=== PATIENT | female | born 1990 | race Two or more races ===

== ENCOUNTER 2023-12-24 09:36 | Emergency (ER) | payer MEDICAID, OTHER ==
[~2023-12-24] VITALS: Ht 157.5 cm; Wt 94.6 kg
[2023-12-24 12:35] VITALS: BP 141/75; PULSE 63; RESP 15; TEMP 97.9; O2SAT 97
[2023-12-24 12:45] LABS: Urine Bacteria None Seen /hpf (None Seen)
[2023-12-24 13:16] LABS: Urine Blood Negative /uL (Negative); Urine Clarity Clear (Clear); Urine Color Yellow (Yellow); Urine Mucus FEW (None Seen); Urine Protein, UAD TRACE (Negative); Urine Specific Gravity 1.031 (1.001-1.035); Urine Urobilinogen Normal (Negative); Urine WBC 2 /hpf (0 - 5); Urine pH 5.5 (5.0-9.0)
[2023-12-24 13:23] LABS: Eosinophils # (auto) 0.4 10 ^3/uL (0-0.8); Mean Corpuscular Hgb Conc. 32.9 g/dL (32.0-36.0); Monocytes # (auto) 0.6 10 ^3/uL (0-1.3); Nucleated Red Blood Cells % 0.1 %; Red Blood Cells 4.76 10^6/uL (4.0-5.20)
[2023-12-24 13:25] LABS: Basophils # (auto) 0.1 10 ^3/uL (0-0.2); Basophils % (auto) 0.5 % (0.0-2.0); Eosinophils % (auto) 4.1 % (0.0-7.0); Hematocrit 38.3 % (36.0-46.0); Hemoglobin 12.6 g/dL (12.2-16.2); Lymphocytes # (auto) 3.6 10 ^3/uL (0.4-5.4); Lymphocytes % (auto) 34.1 % (10.0-50.0); Mean Corpuscular Hemoglobin 26.5 pg (28.0-32.0); Mean Corpuscular Volume 80.6 fL (80.0-100.0); Monocytes % (auto) 5.9 % (0.0-12.0); Neutrophils # (auto) 5.9 10 ^3/uL (1.6-8.6); Neutrophils % (auto) 55.4 % (37.0-80.0); Red Cell Distribution Width 15.3 % (11.8-14.3); White Blood Cell 10.7 10^3/uL (4.4-10.8)
[2023-12-24 13:32] LABS: Chloride 107 mmol/L (98-107); Potassium 3.9 mmol/L (3.5-5.1); Sodium 139 mmol/L (136-145)
[2023-12-24 13:33] LABS: Anion Gap 4 (5-15); Calcium 9.5 mg/dL (8.5-10.1); Carbon Dioxide 28 mmol/L (20-30)
[2023-12-24 13:38] LABS: Blood Urea Nitrogen 12 mg/dL (9-23); Glucose 88 mg/dL (74-106)
[2023-12-24] MEDS ORDERED: NAPR-957 PO (14:18)
[2023-12-25 17:06] LABS: Chlamydia Trachomatis, NAA Negative (Negative); Neisseria gonorrhoeae, NAA Negative (Negative)
== END 2023-12-24 14:32 | disposition home or self-care (01) ==
LOC: EDBD 09:36 → ER 09:36
DX: R10.2 Pelvic and perineal pain (principal)
CPT/HCPCS: 36415; 76856; 80048; 81001; 81025; 85025

== ENCOUNTER 2024-02-21 07:54 | Emergency (ER) | payer MEDICAID ==
[~2024-02-21] VITALS: Ht 160 cm; Wt 94.3 kg
[~2024-02-21 07:54] MED LIST: NAPR-957 PO
[2024-02-21 08:37] LABS: Basophils # (auto) 0 10 ^3/uL (0-0.2); Basophils % (auto) 0.4 % (0.0-2.0); Eosinophils # (auto) 0.4 10 ^3/uL (0-0.8); Hemoglobin 13.4 g/dL (12.2-16.2); Lymphocytes # (auto) 1.1 10 ^3/uL (0.4-5.4); Lymphocytes % (auto) 12.6 % (10.0-50.0); Mean Corpuscular Hemoglobin 27.4 pg (28.0-32.0); Mean Corpuscular Hgb Conc. 33.5 g/dL (32.0-36.0); Mean Corpuscular Volume 81.7 fL (80.0-100.0); Monocytes # (auto) 0.5 10 ^3/uL (0-1.3); Monocytes % (auto) 5.5 % (0.0-12.0); Neutrophils # (auto) 6.9 10 ^3/uL (1.6-8.6); Neutrophils % (auto) 77.5 % (37.0-80.0); Nucleated Red Blood Cells % 0.2 %; White Blood Cell 8.9 10^3/uL (4.4-10.8)
[2024-02-21 09:06] LABS: Chloride 105 mmol/L (98-107); Potassium 3.8 mmol/L (3.5-5.1); Sodium 138 mmol/L (136-145)
[2024-02-21 09:07] LABS: Anion Gap 5 (5-15); Carbon Dioxide 28 mmol/L (20-30)
[2024-02-21 09:08] LABS: Calcium 9.6 mg/dL (8.5-10.1)
[2024-02-21 09:12] LABS: BUN/Creatinine Ratio 9.4 (10.0-20.0); Blood Urea Nitrogen 8 mg/dL (9-23); Glucose 98 mg/dL (74-106)
[2024-02-21] MEDS: SODIUM CHLORIDE 0.9% 1,000 ML IVB ONE (11:30)
[2024-02-21 11:53] LABS: Urine Bacteria FEW /hpf (None Seen); Urine Blood 3+ /uL (Negative); Urine Clarity Turbid (Clear); Urine Color Red (Yellow); Urine Mucus FEW (None Seen); Urine Protein, UAD 2+ (Negative); Urine Specific Gravity 1.011 (1.001-1.035); Urine Urobilinogen Normal (Negative); Urine WBC 30 /hpf (0 - 5); Urine pH 6.5 (5.0-9.0)
[2024-02-21] MEDS ORDERED: CIPR-173 PO (15:10)
[2024-02-21] MEDS ORDERED: HYDR-4902 PO (15:10)
[2024-02-21 15:32] VITALS: BP 128/60; PULSE 90; RESP 18; TEMP 98.9; O2SAT 98
== END 2024-02-21 15:33 | disposition home or self-care (01) ==
LOC: ER 07:54
DX: R10.2 Pelvic and perineal pain (principal); N70.11 Chronic salpingitis; N39.0 Urinary tract infection, site not specified
CPT/HCPCS: 36415; 74176; 76830; 76856; 80048; 81001; 84702; 85025; 96360; 99284; J7030

== ENCOUNTER 2025-06-11 16:23 | Observation (INO) | payer MEDICAID ==
[~2025-06-11 16:23] MED LIST changes: +CIPR-173 PO; +HYDR-4902 PO
[2025-06-11] MEDS ORDERED: PREN-96 PO (17:10)
--- NOTE | 2025-06-12 16:00 | DVHDS2 ---
Physician Discharge Progress N Final Diagnosis: decreased movement 34 WKS Operations or Procedures: Operations or Procedures NST REACTIVE REVIWED ,SONO Condition on Discharge: Good Disposition: Home Discharge Instructions: Diet: Regular Activity: No Restrictions, As Tolerated Follow Up/Referral: F/U with provider Medications: NA Follow Up Care: Specialist: 3D Discharge Statement: "Patient was advised to return to the ER or call 911 if any headaches, dizziness, shortness of breath, chest pain, abdominal pain, bleeding, fevers, or worsening of medical condition. Patient was counseled about treatment plan, medications, possible side effects, patientverbalized understanding. All questions were answered to the best of my ability. This discharge took greater then 30 minutes in planning, reviewing documentation, counseling the patient, and discussing with other team members." Visit Coding OBGYN Date of Service: Jun 11, 2025 Billing Provider: JOSELO VAZQUEZ DO FIXED ROUTE OPERATOR Common Visit Codes: 08942-[id number] OBS CARE (HIGH) FIXED ROUTE OPERATOR Procedure Codes: 85868-71- NON-STRESS TEST JOSELO VAZQUEZ DO Jun 12, 2025 16:00
== END 2025-06-11 17:20 | disposition home or self-care (01) ==
LOC: LDRP 16:23
PROVIDERS: ADMIT Obstetrics & Gynecology; ATTEND Obstetrics & Gynecology
DX: O36.8130 Decreased fetal movements, third trimester, not applicable or unspecified (principal); Z3A.34 34 weeks gestation of pregnancy; Z98.890 Other specified postprocedural states
CPT/HCPCS: 59025; 81002; 94760; G0378

== ENCOUNTER 2025-07-05 17:03 | Observation (INO) | payer MEDICAID ==
[~2025-07-05] VITALS: Ht 157.5 cm; Wt 100.7 kg
[~2025-07-05 17:03] MED LIST changes: +PREN-96 PO
[2025-07-05] MEDS: TERBUTALINE SULFATE 1 MG/ML 1ML VIAL SC ONE (18:33)
--- NOTE | 2025-07-05 19:01 | DVH ---
LIMITED OB ULTRASOUND > 14 WKS: HISTORY: r/o abpruption d/t fall TECHNIQUE: Multiple real-time grayscale images of the gravid uterus with duplex Doppler color flow an d M-mode spectral analysis. TRANSDUCER: Transabdominal FINDINGS: IUP single live fetus at 33 weeks 4 days based on composite averages of the BPD, head circumference, abdominal circumference and femur length heart rate 144 beats per minute MESERET 18.33 cm Cervix 3.97 cm Cephalic Presentation Anterior Grade 2-3 Placenta without previa or abruption. IMPRESSION: 1. IUP single live fetus at 33 weeks 4 days AUA corresponding to an CARMELITA of 08/19/2025 2. FHR; 144 bpm. 3. MESERET: 18.33 cm 4. Cervix 3.97 cm and appears closed
--- NOTE | 2025-07-06 06:16 | DVHDS2 ---
Discharge Summary Date of Admission Jul 05, 2025 at 17:04 Date of Discharge: Jul 05, 2025 Admitting Diagnosis Thirty-three week fall neuro direct trauma to abdomen positive bowel sounds and soft no bruises ultrasound and NST reassuring. Wounds: None Labs/Diagnostic Data: None Brief Hx & Hospital Course: Patient evaluated NST performed as well as ultrasound all reassuring Consults/Reason for consult None Operations or Procedures None Condition at Discharge: Good Final Diagnosis/Problems List 33 weeks reassuring heart tones no labor no trauma no abruption Discharge Disposition: Home Discharge Instruct/Medications Diet: Regular Activity: Light activity (Pelvic rest 4 weeks) Follow Up/Referral: As scheduled primary OB Scheduled Ciprofloxacin Hcl (Cipro), 1 TAB PO BID Naproxen (Naproxen), 1 TAB PO BIDPC Vit W/ Ferrous Fumara ( One Daily), 1 TAB PO DAILY, (Reported) Scheduled PRN Hydrocodone-Acetaminophen (Hydrocodone Bitartrate/AC 5-325 mg), 1 TAB PO Q8HP PRN Discharge Statement: "Patient was advised to return to the ER or call 911 if any headaches, dizziness, shortness of breath, chest pain, abdominal pain, bleeding, fevers, or worsening of medical condition. Patient was counseled about treatment plan, medications, possible side effects, patientverbalized understanding. All questions were answered to the best of my ability. This discharge took greater then 30 minutes in planning, reviewing documentation, counseling the patient, and discussing with other team members." ASSESSMENT ASSESSMENT Assessment Visit Coding OBGYN Date of Service: Jul 05, 2025 Billing Provider: ZACH SMITH DO PELT SALTER Common Visit Codes: 23550-XGT/OBS SAME DATE (LOW), 04875-FAT/OBS SAME DATE (MOD), 95796-BUS/OBS SAME DATE (HIGH) PELT SALTER Procedure Codes: 87347-53- NON-STRESS TEST ZACH SMITH DO Jul 06, 2025 06:16
== END 2025-07-05 19:45 | disposition home or self-care (01) ==
LOC: ER 17:03 → LDRP 17:04
PROVIDERS: ADMIT Obstetrics & Gynecology; ATTEND Obstetrics & Gynecology
DX: O26.893 Other specified pregnancy related conditions, third trimester (principal); R10.9 Unspecified abdominal pain; Z3A.33 33 weeks gestation of pregnancy; Z98.890 Other specified postprocedural states
CPT/HCPCS: 59025; 76815; 81002; 94760; 96372; G0378; J3105